=== PATIENT | female | born 1950 | race Caucasian/White ===

== ENCOUNTER → 2016-10-31 | Outpatient (CLI) | payer OTHER ==
[~2016-10-31] MED LIST: ATEN25TA PO; CHOL100027 PO; DYZ PO; SIMV20TA5 PO; WARF10TA PO; WARF2TAB PO
--- NOTE | 2016-10-31 12:26 | DIAGNOSTIC IMAGING REPORT ---
NECK ULTRASOUND HISTORY: LT SIDED NECK Swelling, mass/lump COMPARISON: None. FINDINGS: No soft tissue masses or fluid collections within the left neck at the patient's area of interest. There is a benign-appearing cervical lymph node which measures 1.2 x 0.7 x 0.3 cm. This demonstrates a normal fatty hilum and thin cortex. Normal thyroid. IMPRESSION: No sonographic abnormality within the neck. Electronically signed by: Lucian Ambriz M.D. 10/31/2016 12:25 PM Dictated Date/Time: 10/31/2016 12:21 PM
== END | disposition home or self-care (01) ==
LOC: C.ULTR 11:46
PROVIDERS: ATTEND Student in an Organized Health Care Education/Training Program
DX: R22.1 Localized swelling, mass and lump, neck (principal); Z85.3 Personal history of malignant neoplasm of breast